=== PATIENT | female | born 1970 | race Caucasian/White ===

== ENCOUNTER 2018-11-12 00:15 | Emergency (ER) | payer OTHER ==
[~2018-11-12] VITALS: Ht 167.6 cm; Wt 86.2 kg
[~2018-11-12 00:15] MED LIST: AMBIEN 10 MG TA10 MG PO; AMITRIPTYLINE H25 M2; ATIVAN0.5 MG PO; CARAFATE; CARAFATE 1 GM TA1 G1 PO; CLONAZEPAM; CLONAZEPAM PO; CYMBALTA PO; CYMBALTA60 MG PO; FLAGYL500 MG PO; LOPERAMIDE 2 MG2 MG PO; LORTAB 5 MG/5001 TA1 PO; NAPROSYN500 MG PO; NORCO 5-325 TA1 EACH PO; PERCOCET 5-3251 EACH PO; PHENERGAN 25 MG25 M1 PO; PHENERGAN PO; PHENERGAN25 M2 RE; PREVALITE PACKE1 PKT PO; PROTONIX40 M2 PO; REGLAN 10 MG TA10 MG PO; REGLAN 5 MG TAB5 M1 PO; REMERON 30 MG T30 M1 PO; REMERON15 M1 PO; REMERON45 MG PO; SEROQUEL 25 MG25 M1 PO; TRANSDERM-SCO1 PATC1 TD; TRAZODONE HCL50 MG PO; ULTRAM 50MG TAB50 MG PO; ZANTAC PO; ZOFRAN; ZOFRAN 4 MG ORAL4 M1 DIS; ZOFRAN4 MG PO; ZOFRAN8 MG PO; ZOLOFT100 MG PO
[2018-11-12] MEDS ORDERED: NAPROSYN500 MG PO (03:07)
[2018-11-12 03:46] VITALS: BP 125/65
== END 2018-11-12 03:47 | disposition home or self-care (01) ==
LOC: ER 00:15
DX: S50.12XA Contusion of left forearm, initial encounter (principal); K21.9 Gastro-esophageal reflux disease without esophagitis; K31.84 Gastroparesis; Z90.49 Acquired absence of other specified parts of digestive tract; W22.8XXA Striking against or struck by other objects, initial encounter; Y93.E9 Activity, other interior property and clothing maintenance; Y92.89 Other specified places as the place of occurrence of the external cause; Y99.8 Other external cause status

== ENCOUNTER 2019-01-15 16:04 | Emergency (ER) | payer OTHER ==
[~2019-01-15] VITALS: Ht 167.6 cm; Wt 88.5 kg
[2019-01-15 16:43] LABS: URINE BILIRUBIN NEGATIVE (Negative); URINE BLOOD NEGATIVE (Negative); URINE CLARITY SL CLOUDY; URINE COLOR YELLOW; URINE GLUCOSE-RANDOM* NEGATIVE (Negative); URINE KETONES NEGATIVE (Negative); URINE LEUKOCYTES-REFLEX NEGATIVE (Negative); URINE NITRITE-REFLEX NEGATIVE (Negative); URINE PROTEIN (DIPSTICK) NEGATIVE (Negative)
[2019-01-15 16:46] LABS: ABSOLUTE NEUTROPHILS 3.6 thou/uL (1.4-8.2); BASOPHILS 0.7 % (0.0-2.0); EOSINOPHILS 2.7 % (0.0-3.0); HEMATOCRIT 40.1 % (37.0-47.0); HEMOGLOBIN 13.4 gm/dL (12.0-15.0); LYMPHOCYTES 30.8 % (24.0-44.0); MCH 28.9 pg (26.0-34.0); MCHC 33.4 g/dL (28.0-37.0); MCV 86.6 fL (80.0-100.0); MONOCYTES 6.6 % (1.0-8.0); PLATELET COUNT 252 thou/uL (150-400); POLYS 59.2 % (36.0-66.0); RBC 4.64 mil/uL (4.20-5.00); RDW 13.8 % (10.5-14.5)
[2019-01-15 17:13] LABS: CALCIUM 9.4 mg/dL (8.5-10.1); CREATININE 0.5 mg/dL (0.6-1.0); POTASSIUM 3.9 mmol/L (3.5-5.1)
[2019-01-15 17:17] LABS: ALBUMIN 3.8 g/dL (3.4-5.0); TOTAL BILIRUBIN 0.4 mg/dL (<0.1-1.0); TOTAL PROTEIN 7.9 g/dL (6.4-8.2)
[2019-01-15] MEDS ORDERED: PROMS25 WY RECTAL (18:47)
[2019-01-15] MEDS ORDERED: ZOFRAN ODT4 MG PO (18:47)
[2019-01-15] MEDS ORDERED: BENTYL 20 MG TA20 M1 PO (18:47)
[2019-01-15 20:10] VITALS: BP 126/58
--- NOTE | 2019-01-16 08:36 | EKG ---
[address] [address] ELECTROCARDIOGRAM REPORT Name: FILIPPO JUSTICE Room #: 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
== END 2019-01-15 20:10 | disposition home or self-care (01) ==
LOC: ER 16:04
PROVIDERS: Emergency Medicine
DX: R10.32 Left lower quadrant pain (principal); K21.9 Gastro-esophageal reflux disease without esophagitis; Z90.49 Acquired absence of other specified parts of digestive tract

== ENCOUNTER 2019-07-10 06:17 | Emergency (ER) | payer OTHER ==
[~2019-07-10] VITALS: Ht 167.6 cm; Wt 90.7 kg
[~2019-07-10 06:17] MED LIST changes: +BENTYL 20 MG TA20 M1 PO; +PROMS25 WY RECTAL; +ZOFRAN ODT4 MG PO
[2019-07-10] MEDS ORDERED: SERTRALINE HCL100 MG PO (06:44)
[2019-07-10] MEDS ORDERED: JARDIANCE10 MG PO (06:45)
[2019-07-10] MEDS ORDERED: XANAX 0.5 MG0.5 M1 PO (06:45)
[2019-07-10 06:59] LABS: ANION GAP 8 mmol/L (7-16); BUN 11 mg/dL (7-18); CALCIUM 8.4 mg/dL (8.5-10.1); CHLORIDE 104 mmol/L (98-107); CO2 25 mmol/L (21-32); CREATININE 0.6 mg/dL (0.6-1.0); GLUCOSE 229 mg/dL (74-106); SODIUM 137 mmol/L (136-145)
[2019-07-10 07:07] LABS: POTASSIUM 4.3 mmol/L (3.5-5.1)
[2019-07-10 07:09] LABS: ALBUMIN 3.6 g/dL (3.4-5.0); SGOT 116 U/L (15-37); SGPT 104 U/L (30-65); TOTAL BILIRUBIN 0.5 mg/dL (<0.1-1.0); TOTAL PROTEIN 7.7 g/dL (6.4-8.2); TROPONIN-I <0.06 ng/mL (<0.06)
--- NOTE | 2019-07-10 08:19 | EKG ---
[facility] [place] [address] [address] ELECTROCARDIOGRAM REPORT Name: FILIPPO JUSTICE Room #: REG [facility]#: [id number] Admission: 07/10/19 Attend Phys: Discharge: Date of : 68 Report #: [id number] THIS REPORT FOR: cc: Samuel Lara MD, Stanley P. MD Couchonnal, Luis F. MD ~ THIS REPORT FOR: //name// 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
[2019-07-10 09:35] LABS: ABSOLUTE NEUTROPHILS 2.6 thou/uL (1.4-8.2); BASOPHILS 2.4 % (0.0-2.0); EOSINOPHILS 2.5 % (0.0-3.0); HEMATOCRIT 40.2 % (37.0-47.0); HEMOGLOBIN 13.4 gm/dL (12.0-15.0); LYMPHOCYTES 38.3 % (24.0-44.0); MCH 29.4 pg (26.0-34.0); MCHC 33.3 g/dL (28.0-37.0); MCV 88.4 fL (80.0-100.0); MONOCYTES 8.1 % (1.0-8.0); PLATELET COUNT 230 thou/uL (150-400); POLYS 48.7 % (36.0-66.0); RBC 4.55 mil/uL (4.20-5.00); RDW 13.2 % (10.5-14.5); WBC 5.4 thou/uL (4.0-11.0)
[2019-07-10 11:58] VITALS: BP 122/72
== END 2019-07-10 11:59 | disposition home or self-care (01) ==
LOC: ER 06:17
PROVIDERS: Student in an Organized Health Care Education/Training Program
DX: R07.89 Other chest pain (principal); K21.9 Gastro-esophageal reflux disease without esophagitis; Z90.49 Acquired absence of other specified parts of digestive tract